=== PATIENT | female | born 1970 | race Caucasian/White ===

== ENCOUNTER 2019-01-17 21:34 | Inpatient (IN) ==
[2019-01-17 23:01] LABS: BASO# 0.03 X1000 (0.0-0.2); BASO% 0.3 % (0.0-0.8); EOS# 0.14 X1000 (0.0-0.7); EOS% 1.5 % (0.0-10.0); HEMATOCRIT 38.6 % (37.0-47.0); HEMOGLOBIN 13.6 g/dL (12.0-16.0); IMM GRAN# 0.02 X1000 (0.0-0.04); IMM GRAN% 0.2 % (0.0-0.5); LYMPH% 7.4 % (20.5-51.1); MCH 32.6 PG (27-31); MCHC 35.2 g/dL (33-37); MCV 92.6 FL (81-99); MONO# 0.43 X1000 (0.11-0.59); MONO% 4.5 % (1.7-9.3); MPV 9.4 FL (7.4-10.4); NEUT# 8.17 X1000 (1.4-6.5); NEUT% 86.1 % (42.2-75.2); PLT 259 X1000 (130-400); RBC 4.17 XMIL (4.2-5.4); RDW 12.6 % (11.5-14.5); WBC 9.49 X1000 (4.8-10.8)
[2019-01-17 23:17] LABS: ALB/GLOB RATIO 1.2; ALBUMIN 4.1 g/dL (3.5-5.0); CREATININE 1.1 mg/dL (0.5-0.9); POTASSIUM 3.9 mmol/L (3.5-5.1); TOTAL BILIRUBIN 0.36 mg/dL (0.20-1.00); TOTAL PROTEIN 7.5 g/dL (6.3-8.3)
[2019-01-18] MEDS ORDERED: VANCOMYCIN 1 GM/NS 1 GM/250 ML IVPB IV ONE ×2 (01:54→10:00)
[2019-01-18] MEDS ORDERED: TORADOL IV ONE (01:54)
[2019-01-18] MEDS ORDERED: ZOFRAN IV ONE ×3 (02:36→04:16)
[2019-01-18] MEDS ORDERED: D H E IV ONE (04:16)
--- NOTE | 2019-01-18 04:25 | PROVIDER DOCUMENTATION ---
This chart was entered by Maria Del Carmen Molina Scribe, acting as scribe for Mariel Johnson MD. HPI-Fever - General Chief Complaint: Fever Stated Complaint: PORT INFECTION/FEVER Time Seen by Provider: 01/18/19 01:58 Source: patient Allergies/Adverse Reactions: Patient Allergies Allergy/AdvReac Type Severity Reaction Status Date / Time No Known Allergies Allergy Verified 07/13/16 20:39 Home Medications: Home Medication List Medication Instructions Recorded Confirmed Last Taken Type Alprazolam [Xanax] 1 mg PO TID 03/29/13 03/29/13 03/29/13 22:00 History Hydrocodone/Acetaminophen [Lortab 1 each PO Q4-6H PRN PRN 03/29/13 03/29/13 03/23/13 History 10-500 Tablet] Meperidine [Demerol] 50 mg PO Q4H PRN PRN 03/29/13 03/29/13 Unknown History Promethazine [Phenergan] 25 mg IM Q4H PRN PRN 03/29/13 03/29/13 03/23/13 History Sertraline [Zoloft] 50 mg PO DAILY 03/29/13 03/29/13 03/29/13 08:30 History Topiramate [Topamax] 300 mg PO DAILY 03/29/13 03/29/13 03/29/13 08:30 History Ondansetron HCl/Pf [Zofran 4 mg/2 4 mg IV 4XDAY PRN PRN 07/13/16 07/13/16 Unknown History ml Vial] - History of Present Illness-Fever Nature of Presenting Problem: 48 yof c/o fever 101, 102, chills around 1800, headache and fatigue. pt has port for migraines w/poss infection. States she noted some redness around this port 3 weeks ago and was seen by dr. ruiz who prescribed antibiotics which pt completed. States the redness improved and then again returned 2 days ago and with this she has noted some purulent drainage from the port as well as fevers to 102 at home. pt denies cp, sob, and nvd. Fever Severity/Quality: reports: greater than 100.5 F Timing: reports: still present Severity: reports: mild Review of Systems - Adult - REVIEW OF SYSTEMS - ADULT Constitutional: reports: see HPI, chills, fever, fatique. denies: night sweats, weight gain, weight loss Eyes: reports: no symptoms reported Ears, Nose, Mouth & Throat: reports: no symptoms reported Cardiovascular: reports: no symptoms reported. denies: chest pain, orthopnea, palpitations Respiratory: reports: no symptoms reported. denies: dyspnea on exertion, excessive sputum production, shortness of breath, wheezing Gastrointestinal: reports: no symptoms reported. denies: diarrhea, nausea, vomiting Genitourinary: reports: no symptoms reported Musculoskeletal: reports: no symptoms reported Integumentary: reports: no symptoms reported Neurological: reports: see HPI, headache/migraines. denies: loss of balance, numbness, syncope Psychiatric: reports: no symptoms reported Endocrine: reports: no symptoms reported Hematologic/Lymphatic: reports: no symptoms reported Allergic/Immunologic: reports: no symptoms reported All Other Systems: Reviewed and Negative Past History - Adult - PAST MEDICAL HISTORY-ADULT Review of Records: reports: Old Records Reviewed, Nursing Assessment Review, Medications Reviewed, Social history reviewed & non-contributory. Major Childhood Illnesses: reports: denies history Cardiovascular: reports: denies history Respiratory: reports: denies history Gastrointestinal: reports: denies history Obstetrical/Gynecological: reports: denies history Genitourinary: reports: denies history Musculoskeletal: reports: denies history Neurological: reports: headaches/migraines Endocrine/Immune: reports: denies history Other Conditions: reports: denies history - PRIOR SURGERIES/PROCEDURES Surgical/Procedure History: reports: hysterectomy, breast - IMMUNIZATION STATUS Childhood Immunizations: See Nurse Assessment Flu Vaccine: See Nurse Assessment - FAMILY HISTORY Family History: reviewed, not pertinent - SOCIAL HISTORY Smoking: non-smoker Substance Use: none/never Physical Exam-General - PHYSICAL EXAM-ADULT Initial Vital Signs Reviewed: Yes - CONSTITUTIONAL General Appearance: appears well, alert, no apparent distress - EYES Eyes: PERRL/EOMI, pink conjunctivae - HEAD, EARS, NOSE, MOUTH & THROAT HENMT: normocephalic/atraumatic, moist mucous membranes, normal ENT inspection - NECK Neck: non-tender, full range of motion, supple, normal inspection - RESPIRATORY Respiratory: chest non-tender, lungs clear, normal breath sounds - CARDIOVASCULAR Cardiovascular: normal peripheral pulses, regular rate, rhythm - GASTROINTESTINAL (ABDOMEN) Abdominal Exam: normal bowel sounds, non tender, soft - LYMPHATIC Lymphatic: no adenopathy - MUSCULOSKELETAL Back Exam: normal inspection, no CVA tenderness, no vertebral tenderness Extremity: normal range of motion, non-tender, normal inspection Peripheral Pulses: radial (R): 2+, radial (L): 2+ - SKIN Integumentary: normal color, normal turgor, warm/dry, erythema (at port site), tenderness, other (white discoloration around access point of port, no active purulent drainage). 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, grossly normal, no motor/sensory deficits - PSYCHIATRIC Psych/Mental Status: normal mood/affect, normal thought content, normal thought process, oriented x 3 Progress - PLAN OF CARE/RESULTS Progress/Plan/Lab Results: Vital Signs - 8 hr 01/17/19 21:38 01/18/19 03:35 Temperature 98.9 F Pulse Rate 120 H 89 Respiratory Rate 18 16 Blood Pressure 100/80 105/75 O2 Sat by Pulse Oximetry 96 97 Laboratory Results - last 24 hr 01/17/19 01/17/19 01/17/19 02:27 22:04 22:04 WBC RBC Hgb Hct MCV MCH MCHC RDW Std Deviation Plt Count MPV Immature Gran % (Auto) Neut % (Auto) Lymph % (Auto) Winkler % (Auto) Eos % (Auto) Baso % (Auto) Immature Gran # (Auto) Neut # (Auto) Lymph # (Auto) Winkler # (Auto) Eos # (Auto) Baso # (Auto) Sodium 139 Potassium 3.9 Chloride 107 Carbon Dioxide 15 L Anion Gap 17 BUN 14 Creatinine 1.1 H Estimated GFR/1.73 m2 53 BUN/Creatinine Ratio 13 Glucose 102 Calculated Osmolality 278 Calcium 9.0 Total Bilirubin 0.36 AST 17 ALT 14 Alkaline Phosphatase 64 Total Protein 7.5 Albumin 4.1 Globulin 3.4 Albumin/Globulin Ratio 1.2 Plasma Lactate 1.0 1.7 01/17/19 22:04 WBC 9.49 RBC 4.17 L Hgb 13.6 Hct 38.6 MCV 92.6 MCH 32.6 H MCHC 35.2 RDW Std Deviation 12.6 Plt Count 259 MPV 9.4 Immature Gran % (Auto) 0.2 Neut % (Auto) 86.1 H Lymph % (Auto) 7.4 L Winkler % (Auto) 4.5 Eos % (Auto) 1.5 Baso % (Auto) 0.3 Immature Gran # (Auto) 0.02 Neut # (Auto) 8.17 H Lymph # (Auto) 0.70 L Winkler # (Auto) 0.43 Eos # (Auto) 0.14 Baso # (Auto) 0.03 Sodium Potassium Chloride Carbon Dioxide Anion Gap BUN Creatinine Estimated GFR/1.73 m2 BUN/Creatinine Ratio Glucose Calculated Osmolality Calcium Total Bilirubin AST ALT Alkaline Phosphatase Total Protein Albumin Globulin Albumin/Globulin Ratio Plasma Lactate Orders Category Date Time Status BLOOD CULTURE [BLDCUL] Stat Lab 01/17/19 02:15 Results CBC WITH ELECTRONIC DIFF [HEME] Stat Lab 01/17/19 22:04 Completed COMPREHENSIVE METABOLIC PANEL [CHEM] Stat Lab 01/17/19 22:04 Completed LACTATE, PLASMA [CHEM] Stat Lab 01/17/19 02:27 Completed LACTATE, PLASMA [CHEM] Stat Lab 01/17/19 22:04 Completed Dihydroergotamine [D.h.e. 45] Med 01/18/19 04:16 Discontinued 1 mg IV NOW ONE Ketorolac [Toradol] Med 01/18/19 01:54 Discontinued 30 mg IV NOW ONE Ondansetron [Zofran] Med 01/18/19 02:36 Discontinued 4 mg IV NOW ONE Ondansetron [Zofran] Med 01/18/19 02:37 Discontinued 4 mg IV NOW ONE Ondansetron [Zofran] Med 01/18/19 04:16 Discontinued 4 mg IV NOW ONE Vancomycin 1 gm/Ns Med 01/18/19 01:54 Discontinued 1 gm in 250 ml IV NOW concern for infected port with failure of outpatient antibiotics. Will further evaluate for degree of infection and will treat with vancomycin. Result Diagrams: 01/17/19 22:04 01/17/19 22:04 - REASSESSMENT Reassessment #1 Status: improving (feeling well, states she has a migraine and requests DHE for this which was ordered. Labs unremarkable but concern for infected port with failure of outpatient abx. Will admit for further evaluation and treatment. Dis cussed case with Dr. Bell, Hospitalist, who will see and admit pt.) Departure - Departure Date of Disposition Decision: 01/18/19 Time of Disposition Decision: 04:24 DIAGNOSIS: Infected venous access port Qualifiers: Encounter type: initial encounter Qualified Code(s): T80.219A - Unspecified infection due to central venous catheter, initial encounter Disposition: ADMITTED INPATIENT 09 Certified Medical Emergency: Emergent Condition: Fair Referrals and Follow-Ups: Zenon Rodriguez MD [Primary Care Provider] - - Critical Care Note This patient required my direct & personal management of CC.: No Attestation - Physician/ CAITLIN Attestation Patient care was provided by Advanced Practice Provider:: No The physician spent face to face time with patient:: Yes Advanced Practice Provider documentation review:: Supervising physician onsite and consulted in the evaluation and care of this patient. The physician did have a face to face encounter with the patient. This chart was documented by the indicated scribe, (Maria Del Carmen Molina, Ariadna) and accurately reflects the services I performed and decisions made by me, Mariel Johnson MD, as attested by the provider's signature.
[2019-01-18] MEDS ORDERED: NORCO-10 PO ONE (05:59)
[2019-01-18] MEDS ORDERED: PHENERGAN IV ONE (05:59)
[2019-01-18] MEDS ORDERED: SODIUM CHLORIDE 0.9% INJ ONE (05:59)
[2019-01-18] MEDS ORDERED: TOPAMAX PO ONE (05:59)
--- NOTE | 2019-01-18 06:59 | HISTORY AND PHYSICAL ---
PRIMARY CARE PHYSICIAN: Dr. Rodriguez. CHIEF COMPLAINT: Fever and chills x1 day. HISTORY OF PRESENTING ILLNESS: A 48-year-old female with a history of migraines and depression who apparently has a PowerPort for treatment for her migraines. She started noticing that the port area was getting red and tender. Over the past day or so, she was developing fevers and chills, and not feeling well. She was evaluated in the emergency department. It was suspected that the port was infected. Subsequently, she will require admission for further management. At the time of my examination, patient denied any headache, chest pain shortness of breath, hemoptysis, melena, or any weight changes, but complained of fevers, chills, and not feeling well. PAST MEDICAL HISTORY: Includes migraines and depression. PAST SURGICAL HISTORY: PowerPort placement. Hysterectomy. Breast reduction. ALLERGIES: No known drug allergies. CURRENT MEDICATIONS: 1. Xanax 1 mg p.o. t.i.d. 2. Lortab 10 one p.o. q.6 hours. 3. Topamax 300 mg p.o. daily. SOCIAL HISTORY: No history of smoking, alcohol or illicit drug use. FAMILY HISTORY: Positive for coronary disease in mother. REVIEW OF SYSTEMS: Fourteen point review of system as listed in HPI. Other systems negative. PHYSICAL EXAMINATION: GENERAL: Cooperative and friendly female. She is resting more comfortably now. VITAL SIGNS: Temperature 98.9 degrees, pulse 120, respirations 18 and blood pressure 100/80. HEENT: Atraumatic and normocephalic. Extraocular movements intact. PERRLA. NECK: No masses. CHEST: Clear to auscultation. The port region on left lateral chest seems to be tender and have erythema. CARDIOVASCULAR: Regular rate and rhythm. ABDOMEN: Soft. Positive bowel sounds. EXTREMITIES: No edema. NEUROLOGIC: She is awake, alert, and oriented x3. : No bladder distention. SKIN: Warm. LABORATORIES AND STUDIES: WBCs 9.49, hemoglobin 13.6, hematocrit 38.6, and platelets 259,000. Sodium 139, potassium 3.9, chloride 107, CO2 is 15, BUN is 14, creatinine is 1.1, and glucose is 102. ASSESSMENT: A 48-year-old female with a history of migraines and depression who apparently has a PowerPort for treatment for migraines who presented to emergency department with a 1-day history of having fevers, chills and erythema around her PowerPort. She was evaluated in the emergency department where it was suspected that the port was infected. Subsequently, she will require admission for further management. 1. Infected PowerPort. 2. Migraine headaches. 3. Depression. PLAN: 1. We will admit patient to medical floor with telemetry. 2. We will check blood cultures. Start patient on IV antibiotics. 3. We will consult General Surgery. 4. We will restart her home medications. 5. Place patient on DVT prophylaxis with SCD's. 6. We will continue to follow and reassess. Make further recommendations based on patient's clinical course. cc: Ed Bell MD
[2019-01-18] MEDS ORDERED: TYLENOL PO PRN (08:38)
[2019-01-18] MEDS ORDERED: VANCOMYCIN IV PER PHARMACY MISC SCH ×2 (08:38)
[2019-01-18] MEDS: ZOSYN 4.5 GM in NS 100 ML IV SCH ×3 (09:56→21:49)
--- NOTE | 2019-01-18 18:02 | PROGRESS NOTE ---
DATE: 01/18/2019 This is a 48-year-old whose venous PowerPoint appears infected. She has eaten today. Dr. Valencia's is planning on removing the port tomorrow. Continue present antibiotics, vancomycin and Zosyn. cc: Ariel Tam MD
--- NOTE | 2019-01-18 20:04 | GENERAL SURGERY CONSULTATION ---
DATE: 01/18/2019 HISTORY OF PRESENT ILLNESS: Ms. Hutton came to the emergency department due to fevers and chills. She reports some redness around her port. She has had a port for 2 years for easy access for treatment of her migraine headaches. MEDICATIONS AT HOME: Xanax, Lortab, and Topamax. ALLERGIES: She has no known drug allergies. SOCIAL HISTORY: Denies smoking or alcohol use. FAMILY HISTORY: Pertinent for coronary disease. REVIEW OF SYSTEMS: Otherwise negative. PHYSICAL EXAMINATION: Vital Signs: Currently afebrile, heart rate 78, blood pressure 95/61. Skin: Her port is palpated, mildly tender. No erythema is noted. Lungs: She has bilateral breath sounds. Heart: Regular rate and rhythm. Abdomen: Soft. ASSESSMENT: Infected port. PLAN: Remove it tomorrow. She has had something to eat this afternoon. She will be on antibiotics tonight and we will remove the port tomorrow. I have discussed this with her. She understands. cc: Oscar Valencia MD
[2019-01-18] MEDS ORDERED: PHENERGAN IM PRN ×2 (21:23→21:38)
[2019-01-18] MEDS ORDERED: PHENERGAN PO PRN (21:48)
[2019-01-18] MEDS: ZOFRAN IV PRN ×2 (21:50→23:46)
[2019-01-18] MEDS: TOPAMAX PO SCH (21:57)
[2019-01-18] MEDS: ELAVIL PO SCH (21:58)
[2019-01-18] MEDS: NORCO-10 PO PRN (23:46)
[2019-01-19] MEDS: ZOSYN 4.5 GM in NS 100 ML IV SCH ×2 (04:01→08:36)
[2019-01-19] MEDS: TOPAMAX PO SCH (08:37)
[2019-01-19] MEDS: ZOFRAN IV PRN (09:28)
[2019-01-19] MEDS: NORCO-10 PO PRN ×2 (09:28→16:02)
[2019-01-19] MEDS ORDERED: VANCOMYCIN 1,450 MG in NS 250 ML IV SCH (10:00)
[2019-01-19] MEDS ORDERED: DIPRIVAN 1% ONE (11:43)
[2019-01-19] MEDS ORDERED: XYLOCAINE-MPF 2% ONE (11:45)
[2019-01-19] MEDS ORDERED: FENTANYL ONE (11:49)
[2019-01-19] MEDS ORDERED: VERSED ONE ×2 (11:49→12:16)
[2019-01-19] MEDS ORDERED: MARCAINE 0.25% PF/EPI 1:200,000 ONE (11:51)
[2019-01-19] MEDS ORDERED: ZOFRAN ONE (12:14)
[2019-01-19] MEDS ORDERED: PHENERGAN ONE (12:14)
[2019-01-19] MEDS ORDERED: SODIUM CHLORIDE 0.9% INJ PRN (13:27)
[2019-01-19] MEDS ORDERED: PHENERGAN IV PRN (13:27)
[2019-01-19] MEDS: MORPHINE IV PRN (14:43)
--- NOTE | 2019-01-19 14:52 | OPERATIVE NOTE ---
PROCEDURE DATE: 01/19/2019 PROCEDURE PERFORMED: Removal of left subclavian port. SURGEON: Oscar Valencia MD. WEEKEND ANCHOR: PETRA Carreon. PREOPERATIVE DIAGNOSES: 1. Infected left subclavian port. 2. History of chronic migraine headaches. POSTOPERATIVE DIAGNOSES: 1. Infected left subclavian port. 2. History of chronic migraine headaches. DESCRIPTION OF PROCEDURE: Satisfactory monitoring anesthesia care was established. IV sedation accomplished. The left upper anterior chest was prepped and draped in a sterile fashion. We anesthetized the skin with 0.25 Marcaine with epinephrine. We allowed the anesthesia, the local to take effect over the next 2 to 3 minutes. After that, we then incised the skin at the area of the old scar. We dissected down to the port pocket. We freed the port from the surrounding soft tissue and then delivered it out of its place with the attached catheter in toto. We then irrigated out the wound copiously with saline. We placed a 3-0 Polysorb [id number] stitch at the site where the catheter went toward the vein. We then placed 3-0 Polysorb simple stitches in the subcutaneous tissue. Then closed the skin with a 4-0 Polysorb subcuticular stitch. Telfa and sterile OpSite were applied. She tolerated it well. Was sent to the recovery room in satisfactory condition. cc: Oscar Valencia MD
[2019-01-19] MEDS ORDERED: D H E IV ONE (16:57)
[2019-01-19 17:59] LABS: AGAP 10; BUN 8 mg/dL (8-22); CALCIUM 8.1 mg/dL (8.8-10.2); CHLORIDE 109 mmol/L (98-107); COSMO 276; CREATININE 0.8 mg/dL (0.5-0.9); ESTIMATED GFR > 60; GLUCOSE 127 mg/dL (70-104); POTASSIUM 3.5 mmol/L (3.5-5.1); SODIUM 138 mmol/L (136-145); TCO2 19 mmol/L (25-35)
--- NOTE | 2019-01-19 18:08 | PROGRESS NOTE ---
DATE: 01/19/2019 SUBJECTIVE: This patient is status post removal of the left subclavian port due to infected left subclavian port. She also has a history of migraines. At the moment of my physical exam, she was complaining of neck pain and back pain mostly. She is not complaining of headache. She has a strong history of migraines and it looks like she has this port placed to get the treatment, but she started having fever, chills and erythema around the port. We did a blood culture that showed gram-positive cocci x2. Initially she was placed on vancomycin and Zosyn. I will continue only with vancomycin and I will monitor. I will get the Infectious Disease Department to evaluate this patient in the morning. Depending on the results, probably we need to also get an echocardiogram. OBJECTIVE: Vital signs: Temperature 98.2 degrees, pulse 73, respiratory rate 18, blood pressure 118/59, oxygen saturation 100% on room air.HEENT: Head normocephalic. No trauma. PERRLA. Neck supple. No JVD. No masses. Central trachea. Chest clear to auscultation. No wheezing. No rales. She has a wound at the level of the left upper thoracic area with a little bit of serosanguineous material. No secretion. Abdomen is soft, nontender, nondistended. No hepatosplenomegaly. Extremities: No edema. No clubbing, no cyanosis. Neurological examination: The patient is alert and oriented x3. No focal deficits. LABORATORY DATA: No lab work done today. I will get new lab work in the morning. ASSESSMENT AND PLAN: 1. Infected left subclavian port, status post removal of the left subclavian port. She seems to be doing good in that area. Just a little bit of serosanguineous discharge. The wound is covered with a dressing. We will monitor for now. 2. History of chronic migraine headaches. Aware. It looks like this patient used at home DHE 45. We will try to get this medication and give it to her if she needs it. 3. Bacteremia, due to gram-positive cocci. I will continue with vancomycin. I will get the Infectious Disease doctor to evaluate this patient in the morning. I will ask for a BMP at this moment to check on her kidney function. 4. History of depression. Continue with same management. cc: Kevin Beauchamp MD
[2019-01-19] MEDS: ELAVIL PO SCH (20:48)
[2019-01-20] MEDS: MORPHINE IV PRN (01:08)
[2019-01-20] MEDS: ZOFRAN IV PRN (01:08)
[2019-01-20 06:31] LABS: BASO# 0.02 X1000 (0.0-0.2); BASO% 0.2 % (0.0-0.8); EOS# 0.12 X1000 (0.0-0.7); EOS% 1.5 % (0.0-10.0); HEMATOCRIT 32.1 % (37.0-47.0); HEMOGLOBIN 11.1 g/dL (12.0-16.0); IMM GRAN# 0.02 X1000 (0.0-0.04); IMM GRAN% 0.2 % (0.0-0.5); LYMPH# 1.99 X1000 (1.2-3.4); LYMPH% 24.6 % (20.5-51.1); MCH 32.3 PG (27-31); MCHC 34.6 g/dL (33-37); MCV 93.3 FL (81-99); MONO% 8.7 % (1.7-9.3); MPV 9.3 FL (7.4-10.4); NEUT# 5.23 X1000 (1.4-6.5); NEUT% 64.8 % (42.2-75.2); PLT 216 X1000 (130-400); RBC 3.44 XMIL (4.2-5.4); RDW 12.9 % (11.5-14.5); WBC 8.08 X1000 (4.8-10.8)
[2019-01-20 06:54] LABS: CALCIUM 8.2 mg/dL (8.8-10.2); CREATININE 1.1 mg/dL (0.5-0.9); POTASSIUM 3.6 mmol/L (3.5-5.1)
[2019-01-20] MEDS: TOPAMAX PO SCH (08:57)
[2019-01-20] MEDS ORDERED: MORPHINE IV PRN (08:59)
[2019-01-20] MEDS: KEFZOL 2 GM/D5W 2 GM/50 ML IVPB IV SCH ×2 (10:30→17:30)
--- NOTE | 2019-01-20 13:12 | GENERAL SURGERY PROGRESS NOTE ---
DATE: 01/20/2019 Her T-max was 100.8. She is afebrile now. She feels better. Her wound is fine. A new bandage is placed. cc: Oscar Valencia MD
--- NOTE | 2019-01-20 15:27 | ECHO REPORT ---
ORDER DATE: 01/20/2019 INDICATION: Fever and chills. FINDINGS: 1. Right atrium appears normal size at 2.5 cm. 2. Mild tricuspid regurgitation. Insufficient data to estimate RV systolic pressure. 3. Normal RV size and systolic function. 4. No significant pulmonic insufficiency. 5. Normal left atrial size at 2.7 cm. 6. No mitral prolapse. No evidence of clear mitral regurgitation. No significant mitral stenosis. 7. Normal LV size, end-diastolic dimension of 3.9 cm. There is no evidence of left ventricular hypertrophy. Normal LV systolic function. The estimated ejection fraction is 60% with normal wall motion. 8. Aortic valve opens well. It is trileaflet. No evidence of stenosis or insufficiency. 9. Aorta appears normal visualized segments. 10. No pericardial effusion is identified. cc: MD Kevin Garner MD
--- NOTE | 2019-01-20 17:15 | PROGRESS NOTE ---
DATE: 01/20/2019 SUBJECTIVE: This patient is feeling better today. She is not complaining of headache, no chest pain or shortness of breath. She does have a positive culture that showed MSSA. I have placed this patient on cefazolin 2 g IV q.8 hours. I have also requested an echocardiogram and Infectious Disease Department evaluation. OBJECTIVE: Vital Signs: Temperature 98.2 degrees, pulse 88, respiratory rate 16, blood pressure 100/60, oxygen saturation 95% on room air. HEENT: Normocephalic no trauma PERRLA. Neck: Supple. No JVD. No masses. Central trachea. Chest: Clear to auscultation. No wheezing. No rales. She has a wound at the level of the left upper thoracic area with a little bit of serosanguineous material, no secretion. Abdomen: Soft, nontender, nondistended. No hepatosplenomegaly. Extremities: No edema, no clubbing, no cyanosis. Neurological: The patient is alert and oriented x3. No focal deficits. LABORATORY: WBC 8, hemoglobin 11.1, hematocrit 32.1, platelets 216,000. Sodium 137, potassium 3.6, chloride 107, bicarbonate 18, BUN 7, creatinine 1.1, glucose 98, calcium 8.2. ASSESSMENT AND PLAN: 1. Infected left subclavian port, status post removal of the left subclavian port. She seems to be doing good in that area. Surgery department on board. We will continue to monitor. 2. Methicillin susceptible Staphylococcus aureus bacteremia, I have placed this patient on cefazolin 2 g every 8 hours. I will continue with the same management. I have requested an echocardiogram and also Infectious Disease Department evaluation. 3. History of chronic migraine headaches, aware. She is feeling better today. 4. History of depression, continue with same management. Hopefully tomorrow we will get a new set of blood cultures and likely if in 48 hours this is normal and/or there is no bacteria growing in that culture we can probably place placed a PICC line and send this patient home with IV antibiotics. cc: Kevin Beauchamp MD
[2019-01-20] MEDS: ELAVIL PO SCH (21:49)
[2019-01-20] MEDS: NORCO-10 PO PRN (21:49)
[2019-01-21] MEDS: KEFZOL 2 GM/D5W 2 GM/50 ML IVPB IV SCH ×3 (00:35→16:27)
[2019-01-21] MEDS: TOPAMAX PO SCH (10:04)
--- NOTE | 2019-01-21 14:44 | PROGRESS NOTE ---
DATE: 01/21/2019 SUBJECTIVE: Patient is feeling better today. Echocardiogram did not show any vegetation. We have a positive culture that showed MSSA. She is receiving cefazolin 2 g IV q.8 hours. She is not complaining of headache, nausea, or vomiting. OBJECTIVE: Vital Signs: Temperature 98.7 degrees, pulse 81, respiratory rate 16, blood pressure 98/71, oxygen saturation 90 on room air. HEENT: Head normocephalic, no trauma PERRLA. Neck: Supple. No JVD. No masses. Central trachea. Chest: Clear to auscultation. No wheezing. No rales. She has a wound at the level of the left upper thoracic area with no signs of bleeding or secretion. Abdomen: Soft, nontender, nondistended. No hepatosplenomegaly. Extremities: No edema, no clubbing, no cyanosis. Neurological: The patient is alert and oriented x3. No focal deficits. LABORATORY: WBC 8, hemoglobin 11.1, hematocrit 32.1, platelets 216,000. Sodium 137, potassium 3.6, chloride 107, bicarbonate 18, BUN 7, creatinine 1.1, glucose 98, calcium 8.2. This lab work has been done yesterday. No lab work done today. ASSESSMENT AND PLAN: 1. Infected left subclavian port, status post removal of the left subclavian port. She seems to be doing good in that area. Surgery Department on board. Continue to monitor. 2. Methicillin susceptible Staphylococcus aureus bacteremia. I have placed this patient on cefazolin 2 g every 8 hours. I will continue with the same management. Echocardiogram did not show vegetations. She does not have a murmur. Infectious Disease Department has been consulted. 3. History of chronic migraine headaches, aware. She is feeling better today. 4. History of depression, continue with same management. Overall, this patient is feeling much better. I had a new blood culture done today. We will monitor this closely. Hopefully, this patient can be discharged in the next 48 hours if Infectious Disease Department is okay with that. cc: Kevin Beauchamp MD
[2019-01-21] MEDS: ELAVIL PO SCH (20:15)
--- NOTE | 2019-01-21 20:17 | INFECTIOUS DISEASE CONSULT REP ---
DATE: 01/21/2019 CONCLUSION: Patient has an oxacillin sensitive Staph aureus bacteremia which originated from an infected left-sided Port-A-Cath which has been removed by Dr. Oscar Valencia. RECOMMENDATIONS: I agree with Dr. Urrutia treating the patient with Ancef 2 g IV every 8 hours. The patient will need 14 days of treatment with day #1 being the first day that the patient's repeat blood cultures are sterile. In the past, [facility] has furnished supplies for the patient with her Port-A-Cath so I put in a consult for them to give the patient IV Ancef at home for a period of 12 days. Also, I have put in a request for the patient to see me in my office 12 days after discharge from the hospital. DISCUSSION: The patient about 2 weeks ago started developing fever and chills. Also she noticed that the area around her Port-A-Cath was erythematous and leaking pus. She was admitted to the hospital and blood cultures are showing oxacillin-sensitive Staph aureus. The patient's laboratory studies show a CBC with a white count of 8080, hemoglobin is 11.1, platelet count is 216,000. Creatinine is 1.1. GFR is 53. The patient's glucose was 98. Liver function studies were normal. 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 She has had , hysterectomy, and tubal ligation. REVIEW OF SYSTEMS: EYES AND EARS: She does not have any problem hearing or seeing. Neck: No stiffness. Respiratory: No cough or shortness of breath. Cardiac: No chest pain or palpitations. GI: No nausea, vomiting, or diarrhea. : No dysuria or flank pain. Bones, joints, muscles: No swollen joints or muscle aching. Neurologic: The patient is alert. She can move her extremities. There is no tremor. Integument: She has a suntan. She does not have any rash. PREVIOUS HOSPITALIZATION AND OPERATIONS: The patient as mentioned above has x2, a hysterectomy and tubal ligation. She has had a Port-A-Cath placed. She has had bilateral breast reduction. MEDICAL DISEASES: Positive for migraine headache. INFECTIOUS DISEASE HISTORY: Negative for pneumonia and UTI. FAMILY HISTORY: Positive for myocardial infarction and cancer. SOCIAL HISTORY[place] She does not smoke cigarettes, drink alcoholic beverages or abuse drugs. She is . She does not have any pets at home. ALLERGIES: She has no known drug allergies. HOME MEDICATIONS: Include amitriptyline, Decadron, hydrocodone, Zofran, Phenergan and Topamax. PHYSICAL EXAMINATION: Vital Signs: Temperature is 98.4, pulse 77, respirations 16, blood pressure 107/77, patient is 5 feet 3 inches tall, weighs 188 pounds. General: This is an obese middle-aged female. She is in no acute distress. Head/eyes/ears/nose/throat: She can hear my spoken words and see near objects. She does not have any white patches on her tongue. Neck: She does not have any pain when she moves her neck. Thorax: The patient had her left-sided Port-A- Cath removed by Dr. Oscar Valencia. The dressing is intact. Lungs: Clear to auscultation. Cardiovascular: Heart rate is regular. No murmur was heard. Abdomen: Soft and nontender. Neurologic: The patient is alert. She can move her extremities. There is no tremor. Her sensation is intact to touch. Her memory as regarding her medical history is intact. Thank you for the consult. cc: Flaquito Argueta MD
[2019-01-22] MEDS: KEFZOL 2 GM/D5W 2 GM/50 ML IVPB IV SCH ×2 (01:04→10:34)
[2019-01-22] MEDS: ZOFRAN IV PRN ×3 (05:51→21:48)
[2019-01-22] MEDS: NORCO-10 PO PRN ×3 (05:51→21:48)
[2019-01-22 07:40] LABS: AGAP 15; BUN 10 mg/dL (8-22); CALCIUM 8.3 mg/dL (8.8-10.2); CHLORIDE 107 mmol/L (98-107); COSMO 277; CREATININE 0.8 mg/dL (0.5-0.9); ESTIMATED GFR > 60; GLUCOSE 99 mg/dL (70-104); POTASSIUM 3.5 mmol/L (3.5-5.1); SODIUM 139 mmol/L (136-145); TCO2 17 mmol/L (25-35)
[2019-01-22] MEDS: TOPAMAX PO SCH (10:33)
--- NOTE | 2019-01-22 14:43 | PROGRESS NOTE ---
DATE: 01/22/2019 SUBJECTIVE: No acute events overnight, the blood culture from yesterday still negative. Hopefully tomorrow we will place a PICC line and I will send this patient home with cefazolin, Infectious Disease Department on board and they will follow this patient as an outpatient. OBJECTIVE: Vital Signs: Temperature 97.6 degrees, pulse 74, respiratory rate 16, blood pressure 109/61, oxygen saturation 100% on room air. HEENT: Head normocephalic, no trauma. PERRLA. Neck: Supple. No JVD, no masses. Central trachea. Chest: Clear to auscultation. No wheezing, no rales. Her wound at the level of the left upper thoracic area with no signs of bleeding or secretion. Abdomen: Soft, nontender, nondistended. No hepatosplenomegaly. Extremities: No edema, no clubbing, no cyanosis. Neurologic: The patient is alert, she is oriented x3. No focal deficit. LABORATORY: Sodium 139, potassium 3.5, chloride 107, bicarbonate 17, BUN 10, creatinine 0.8, glucose 99, calcium 8.3. ASSESSMENT AND PLAN: 1. Infected left subclavian port status post removal of the left subclavian port. She seems to be doing good in that area. Surgery Department on board. Continue to monitor. 2. Methicillin sensitive Staphylococcus aureus bacteremia, continue with cefazolin 2 g every 8 hours, I will continue with same management. Echocardiogram did not show any vegetations, Infectious Disease Department evaluated this patient and they agree with the treatment. Hopefully tomorrow if the blood culture is negative I will discharge this patient home with a PICC line and follow up with Dr. Argueta as an outpatient. 3. History of chronic migraine headaches, aware. She is feeling good today. 4. History of depression, aware. cc: Kevin Beauchamp MD
[2019-01-22] MEDS: ELAVIL PO SCH (21:49)
[2019-01-23] MEDS: KEFZOL 2 GM/D5W 2 GM/50 ML IVPB IV SCH ×3 (01:12→16:47)
[2019-01-23] MEDS ORDERED: NS 250 ML ONE (08:24)
[2019-01-23] MEDS: TOPAMAX PO SCH (08:53)
[2019-01-23 09:39] LABS: INR 0.97; PROTIME 13.7 Seconds (11.0-16.0)
[2019-01-23 09:40] LABS: PTT 32.4 Seconds (22.3-41.8)
[2019-01-23] MEDS ORDERED: D H E IV ONE (11:02)
[2019-01-23] MEDS: ZOFRAN IV PRN (11:59)
--- NOTE | 2019-01-23 19:07 | Diag Imaging Result Doc PS360 ---
EXAM: CHEST-PORTABLE HISTORY: Central line RIJ TECHNIQUE: Portable chest single view COMPARISON: None. FINDINGS: The lungs are well expanded. The heart is not enlarged. There is a right jugular line. The tip overlies the right atrium. No pneumothorax. The vessels are not distended. There are no infiltrates. No effusion identified. IMPRESSION: No postprocedural pneumothorax. Electronically signed by Vel Butcher 01/23/2019 7:05 PM
[2019-01-23 19:27] VITALS: BP 134/70
--- NOTE | 2019-01-23 19:38 | OPERATIVE NOTE ---
PROCEDURE DATE: 01/23/2019 PROCEDURE: Right internal jugular vein central venous line placement with ultrasound guidance. SURGEON: Dr. Valencia. PREOPERATIVE DIAGNOSIS: Poor venous access. POSTOPERATIVE DIAGNOSIS: Poor venous access. Patient was brought to the PACU, placed in Trendelenburg position. The right side of the neck and upper anterior chest were prepped and draped in a sterile fashion. We ultrasounded the neck and identified the vein. We anesthetized the skin, made a small stab incision, and accessed the internal jugular vein without difficulty. We passed the guidewire through the syringe and needle without difficulty. We then dilated the tract and passed the triple-lumen catheter to the extent that it would go without difficulty. We were able to aspirate blood from each lumen and flushed each lumen with saline. We secured the flange to the skin with the silk contained within the tray. A Biostep patch was placed at the exit site and a sterile OpSite dressing was applied. She tolerated it well. A chest x-ray was ordered. cc: Oscar Valencia MD
--- NOTE | 2019-01-24 01:06 | DISCHARGE SUMMARY ---
ADMISSION DATE: 01/18/2019 DISCHARGE DATE: 01/23/2019 DISCHARGE DIAGNOSES: 1. Infected left subclavian port status post removal. 2. Methicillin-susceptible Staphylococcus bacteremia. 3. History of chronic migraine headaches. 4. History of depression. CONSULTATIONS: Surgery Department, Oscar Carrizales. Infectious Disease Department, Dr. Flaquito Argueta. HOSPITAL COURSE: The patient is a 48-year-old female with a past medical history of migraine and depression, admitted on 01/18/2019 due to a port infection. She noticed that the area was getting red and tender and she started having chills and fever, and she was not feeling well. She was evaluated in the emergency department and it was suspected that the port was infected. Then the Surgery Department was consulted, and on 01/19/2019 the catheter was removed. We ask for a blood culture on 01/17/2018 that showed MSSA. Initially she was on broad-spectrum antibiotics including vancomycin, but then with this resolved with MSSA bacteremia we decided to switch it to cefazolin IV 2 g every 8 hours. We repeated the blood culture on 01/21/2019, and it has been negative for more than 48 hours. The Infectious Disease Department evaluated this patient and they agree with the management. This patient will have a PICC line placed today and she will go home with IV cefazolin 2 g every 8 hours for 12 more days to complete a treatment of 14 days. She will also follow up with Dr. Argueta 12 days after discharge, she will need to call for the appointment. Like I said she will have a PICC line placed and she will go home today. Vital signs are stable as well as lab work done yesterday. PHYSICAL EXAMINATION: Vital Signs: Temperature 97.6 degrees, pulse 80, respiratory rate 20, blood pressure 125/69, oxygen saturation is 100% on room air. HEENT: Head is normocephalic and atraumatic. PERRLA. Neck: Supple. No JVD. No masses. Central trachea. Chest: Clear to auscultation. No wheezing. No rales. She has a wound at the level of the left upper thoracic area that looks clean, no signs of bleeding or discharge. Abdomen: Soft, nontender, and nondistended. No hepatosplenomegaly. Extremities: No edema. No clubbing. No cyanosis. Neurological: The patient is alert and oriented x3. No focal deficits. LABORATORY DATA: No lab work done today, but yesterday sodium was 139, potassium 3.5, chloride 107, bicarbonate 17, BUN 10, creatinine 0.8, glucose 99, calcium 8.3, PTT 13.7. INR is 0.97 today, and PTT 32.4 today. DISCHARGE MEDICATION: Basically she will continue with her home medications, and we will add cefazolin 2 g IV q.8 hours for 12 more days. Amitriptyline 25 mg p.o. at bedtime, Tylenol 650 mg p.o. as needed for fever, Lortab 10 p.o. q.4-6 hours as needed for pain, Zofran 4 mg IV 4 times a day as needed, Topamax 300 mg p.o. daily, Phenergan 25 mg IM q.4 hours as needed for nausea and vomiting, and dexamethasone 10 mg IV q.8 hours as needed for headache/migraine attack. FOLLOW-UP: Follow up with Dr. Argueta in 12 days. Also follow up with her neurologist, she will need to call for appointment. Follow up with primary care doctor to take care of the wound. TIME SPENT: Discharging this patient is 35 minutes. cc: Kevin Beauchamp MD
== END 2019-01-23 20:38 | disposition home or self-care (01) | DRG 315 ==
LOC: ED 21:34 → EDIPHOLD 01-18 07:17 → SUATTDRO 01-18 07:17 → 4N 01-18 22:27
PROVIDERS: ATTEND Internal Medicine
CPT/HCPCS: 36569; 71010; 71045; 80048; 80053; 83605; 85025; 85610; 85730; 87040; 87077; 87186; 88300; 93306; 96365; 96366; 96367; 96368; 96375; 96376; 99285; A9270; J0690; J1110; J1885; J2250; J2270; J2405; J2543; J2550; J3010; J3370; J7050